=== PATIENT | female | born 1965 | race Two or more races ===

== ENCOUNTER → 2024-06-13 | Outpatient (CLI) | payer MEDICAID, SELFPAY ==
--- NOTE | 2024-06-13 11:30 | XR_ITS ---
Examination: Breast ultrasound, unilateral, right complete Date and time of exam: June 13, 2024 1127 hours INDICATIONS: History right breast cancer intraductal carcinoma 2022 the lumpectomy Technique: Real-time thomas scale ultrasonographic imaging performed right breast including all 4 quadrants as well as nipple retroareolar and axillary region. Findings: No cystic or solid mass noted IMPRESSION: No cystic or solid mass noted Scarring 11:00 position, recommend 6 month follow-up
== END | disposition home or self-care (01) ==
LOC: CDIM 11:04
PROVIDERS: PCP Family Medicine; Referring Provider Nurse Practitioner Family; Visit Provider Nurse Practitioner Family
DX: D05.11 Intraductal carcinoma in situ of right breast (principal); D05.81 Other specified type of carcinoma in situ of right breast
CPT/HCPCS: 76641

== ENCOUNTER 2024-07-29 15:24 | Outpatient (RCR) | payer MEDICAID, SELFPAY | END 2024-08-23 23:59 | disposition home or self-care (01) | LOC: SCTC 15:24 | PROVIDERS: PCP Family Medicine; Referring Provider Family Medicine; Visit Provider Nurse Practitioner Family | DX: D05.11 Intraductal carcinoma in situ of right breast (principal); N64.59 Other signs and symptoms in breast; Z90.11 Acquired absence of right breast and nipple; Z17.0 Estrogen receptor positive status [ER+]; Z17.22 Progesterone receptor negative status; Z79.811 Long term (current) use of aromatase inhibitors; K64.9 Unspecified hemorrhoids | CPT/HCPCS: 99212; G0463 ==

== ENCOUNTER → 2024-11-14 | Outpatient (CLI) | payer MEDICAID, SELFPAY ==
--- NOTE | 2024-11-14 08:30 | XR_ITS ---
Examination: Screening digital mammography, bilateral Computer aided detection 3-D breast Tomosynthesis, bilateral Date and time of exam: November 14, 2024 0815 hours Compared to mammograms dating to August 10, 2022 Indication: Screening Technique: Nonmagnified MLO, CC views of the breasts to been obtained, reconstructed from 3-D Tomosynthesis images. R2 computer aided detection program utilized for evaluation of suspicious masses and/or abnormal calcifications. 3-D Tomosynthesis images obtained. Findings: Scattered areas of fibroglandular density. Architectural distortion outer right breast consistent with patient's history treated right breast cancer 2022 Stable skin thickening No interval suspicious mass Impression: BI-RADS category II: Benign Findings. Recommend 1 year follow-up mammogram.
== END | disposition home or self-care (01) ==
LOC: CDIM 08:07
PROVIDERS: PCP Family Medicine; Referring Provider Nurse Practitioner Family; Visit Provider Nurse Practitioner Family
DX: Z12.31 Encounter for screening mammogram for malignant neoplasm of breast (principal); R92.323 Mammographic fibroglandular density, bilateral breasts; D05.11 Intraductal carcinoma in situ of right breast; D05.81 Other specified type of carcinoma in situ of right breast
CPT/HCPCS: 77063; 77067

== ENCOUNTER → 2024-12-09 | Outpatient (CLI) | payer MEDICAID, SELFPAY ==
--- NOTE | 2024-12-09 16:00 | XR_ITS ---
Examination: Breast ultrasound, unilateral, right Date and time of exam: December 09, 2024 1630 hours Comparison June 13, 2024 INDICATIONS: Architectural distortion outer right breast consistent with patient's history treated right breast cancer on mammogram November 14, 2024, patient states right breast pain 2 years Technique: Real-time thomas scale ultrasonographic imaging performed right breast including all 4 quadrants as well as nipple retroareolar and axillary region. Findings: Scar formation 11:00 position right breast stable in appearance IMPRESSION: BI-RADS Category 2: Benign finding
== END | disposition home or self-care (01) ==
LOC: CDIM 16:18
PROVIDERS: Referring Provider Nurse Practitioner Family; Visit Provider Nurse Practitioner Family
DX: D05.11 Intraductal carcinoma in situ of right breast (principal); D05.81 Other specified type of carcinoma in situ of right breast
CPT/HCPCS: 76641

== ENCOUNTER 2025-01-22 11:00 | Outpatient (RCR) | payer MEDICAID, SELFPAY | END 2025-02-20 23:59 | disposition home or self-care (01) | LOC: SCTC 11:00 | PROVIDERS: PCP Family Medicine; Referring Provider Internal Medicine Hematology & Oncology; Visit Provider Nurse Practitioner Family | DX: D05.11 Intraductal carcinoma in situ of right breast (principal); Z90.11 Acquired absence of right breast and nipple; Z92.3 Personal history of irradiation; Z79.811 Long term (current) use of aromatase inhibitors; G89.29 Other chronic pain; N64.4 Mastodynia; K64.9 Unspecified hemorrhoids | CPT/HCPCS: 99212; G0463 ==

== ENCOUNTER → 2025-03-06 | Outpatient (CLI) | payer MEDICAID, SELFPAY ==
--- NOTE | 2025-03-06 14:54 | XR_ITS ---
Examination: Bilateral hands, 6 views. Technique: AP, Oblique, Lateral each hand total 6 views Date and time of exam: March 06, 2025 at 1501 hours INDICATIONS: Bilateral hand pain 6 months. FINDINGS: Moderate juxta-articular bone demineralization No fractures involving either hand No erosive or other significant arthritic change involving either hand Minimal osteoarthritis distal interphalangeal joints second through fifth digits and interphalangeal joints first digits IMPRESSION: No erosive or other significant arthritic change
--- NOTE | 2025-03-06 14:54 | XR_ITS ---
Exam: elbow bilateral, 6 views Technique: Elbow AP, oblique, lateral each elbow total 6 views Exam date and time: March 06, 2025 1501 hours INDICATIONS: Bilateral elbow pain 6 months. FINDINGS: No fracture or dislocation involving either elbow No cortical bone destruction No significant arthritic change. No elbow effusions IMPRESSION: No fractures or significant arthritic change.
--- NOTE | 2025-03-06 14:54 | XR_ITS ---
Indication: Bilateral wrists 6 views TECHNIQUE: AP oblique lateral each wrist total 6 views Date and time: March 06, 2025 1508 hours INDICATIONS: Bilateral wrist pain beginning 6 months ago. FINDINGS: Moderate osteopenia. No fracture or dislocation involving either wrist. Mild osteoarthritis radiocarpal first carpometacarpal joints No erosive arthritis No avascular necrosis No opaque foreign bodies Small old bone densities adjacent to the left ulnar styloid tip IMPRESSION: Mild osteoarthritis
== END | disposition home or self-care (01) ==
LOC: CDIM 14:31
PROVIDERS: PCP Family Medicine
DX: M25.531 Pain in right wrist (principal); M25.532 Pain in left wrist; M79.641 Pain in right hand; M79.642 Pain in left hand; M25.521 Pain in right elbow; M25.522 Pain in left elbow
CPT/HCPCS: 73080; 73110; 73130

== ENCOUNTER → 2025-03-17 | Outpatient (CLI) | payer MEDICAID, SELFPAY ==
--- NOTE | 2025-03-17 12:40 | XR_ITS ---
Examination: Bone densitometry Date and time of exam:March 17, 2025, 1301 hours INDICATIONS: (Menopause age 54, vitamin D and calcium 2 years. Technique: Lumbar spine and hip total bone mineralization values of an calculated. Peak reference and age match control results have been displayed. Findings: Lumbar spine total bone mineralization 1.023 gm/cm2. This is 0.2 standard deviations below peak reference. This is 1.0 standard deviations above age-matched controls. Hip total bone mineralization is 0.909 gm/cm2 This is 0.4 standard deviations below peak reference. This is 0.5 standard deviations above age-matched controls Impression: There is normal mineralization based on lumbar spine measurements. There is osteopenia based on hip measurements Lumbar mineralization is decreased 5.0% compared with March 15, 2023 Hip mineralization is decreased 9.6% compared with March 15, 2023.
== END | disposition home or self-care (01) ==
LOC: CDIM 12:04
PROVIDERS: Referring Provider Nurse Practitioner Family; Visit Provider Nurse Practitioner Family
DX: M85.89 Other specified disorders of bone density and structure, multiple sites (principal); D05.11 Intraductal carcinoma in situ of right breast; D05.81 Other specified type of carcinoma in situ of right breast
CPT/HCPCS: 77080

== ENCOUNTER 2025-04-28 15:29 | Outpatient (RCR) | payer MEDICAID, SELFPAY | END 2025-05-23 23:59 | disposition home or self-care (01) | LOC: SCTC 15:29 | PROVIDERS: PCP Family Medicine; Referring Provider Nurse Practitioner Family; Visit Provider Nurse Practitioner Family | DX: D05.11 Intraductal carcinoma in situ of right breast (principal); Z17.0 Estrogen receptor positive status [ER+]; Z17.22 Progesterone receptor negative status; Z90.11 Acquired absence of right breast and nipple; Z79.811 Long term (current) use of aromatase inhibitors; K64.9 Unspecified hemorrhoids | CPT/HCPCS: 99212; G0463 ==